=== PATIENT | male | born 1955 | race African-American/Black ===

== ENCOUNTER 2024-01-10 00:35 | Emergency (ER) | payer MEDICARE, BC, SELFPAY ==
[2024-01-10 00:35] VITALS: BMI 22.9
[2024-01-10 01:05] VITALS: BP 168/95; PULSE 78; RESP 18; TEMP 36.6; O2SAT 99
--- NOTE | 2024-01-10 01:24 | EDRME_ITS ---
Rapid Medical Screening Exam PENDING SALE TO [facility] Arrival date/time: 01/10/24 00:35 68M with history of GERD and hiatal hernia presents to ED with several hours of gen ab pain. Patient states this feels different than GERD and hernia pains. Chief Complaint: Abdominal Pain Vital signs: Vital Signs Temperature 98 F 01/10/24 01:05 Pulse Rate 78 01/10/24 01:05 Respiratory Rate 18 01/10/24 01:05 Blood Pressure 168/95 H 01/10/24 01:05 Pulse Oximetry (%) 99 01/10/24 01:05 Oxygen Delivery Method Room Air 01/10/24 01:05
[2024-01-10 02:07] LABS: Basophils % (Auto) 0 % (0-2.5); Eosinophils # (Auto) 0.1 Thou/mm3 (0.0-0.5); Eosinophils % (Auto) 1 % (0-10); Hematocrit 46.1 % (41.0-53.0); Hemoglobin 14.8 g/dL (13.5-16.0); Immature Granulocytes % (Auto) 0 % (0-0); Immature Granulocytes Auto 0.02 Thou/mm3 (0.00-0.00); Lymphocytes % (Auto) 15 % (10-50); Mean Corpuscular HGB Conc 32.1 g/dl (31.0-37.0); Mean Corpuscular Hemoglobin 27.4 pg (25.0-35.0); Mean Corpuscular Volume 85 fL (80-100); Monocytes # (Auto) 0.6 Thou/mm3 (0.0-0.8); Monocytes % (Auto) 9 % (0-12); Neutrophils # (Auto) 4.7 Thou/mm3 (1.8-7.7); Neutrophils % (Auto) 74 % (37-80); Nucleated Red Blood Cell % 0 /100 WBC (0); Platelet Count 150 Thou/mm3 (140-440); RDW Standard Deviation 47.2 fL (35.1-43.9); Red Blood Count 5.41 Miln/mm3 (4.50-5.90); White Blood Count 6.4 Thou/mm3 (3.8-10.6)
[2024-01-10 02:50] LABS: Alanine Aminotransferase 24 U/L (10-49); Albumin, Serum 4.3 gm/dL (3.4-4.8); Albumin/Globulin Ratio 1.5 (1.2-2.2); Alkaline Phosphatase 112 U/L (46-116); Anion Gap 8 (7-16); Aspartate Amino Transferase 34 U/L (0-34); BUN/Creatinine Ratio 13 Ratio (12-20); Bilirubin,Total 0.5 mg/dL (0.3-1.2); Blood Urea Nitrogen 15 mg/dL (9-23); Carbon Dioxide 26.2 mMol/L (20.0-31.0); Chloride 104 mMol/L (98-107); Creatinine (Component) 1.2 mg/dL (0.6-1.3); Estimated Creatinine Clearance 65.7 mL/min (>60); Globulin 2.9 gm/dL (2.3-3.5); Glucose 118 mg/dL (74-106); Lipase 44 U/L (12-53); Osmolality,Calculated 277 (275-295); Potassium 4.7 mMol/L (3.4-5.1); Sodium 138 mMol/L (136-145); Total Protein 7.2 gm/dL (5.7-8.2); eGFR > 60 See Note
== END 2024-01-10 01:24 | disposition left against medical advice (07) ==
PROVIDERS: Physician Assistant; Emergency Provider Emergency Medicine; PCP Internal Medicine
DX: R10.84 Generalized abdominal pain (principal); Z53.29 Procedure and treatment not carried out because of patient's decision for other reasons
CPT/HCPCS: 36415; 80053; 80307; 81001; 83690; 85025; 99281

== ENCOUNTER → 2024-01-14 | Outpatient (CLI) | payer MEDICARE, BC, SELFPAY ==
[2024-01-14 10:39] LABS: Basophils % (Auto) 0 % (0-2.5); Eosinophils # (Auto) 0.1 Thou/mm3 (0.0-0.5); Eosinophils % (Auto) 3 % (0-10); Hematocrit 47.2 % (41.0-53.0); Hemoglobin 15.1 g/dL (13.5-16.0); Immature Granulocytes % (Auto) 0 % (0-0); Lymphocytes % (Auto) 30 % (10-50); Mean Corpuscular Hemoglobin 27.5 pg (25.0-35.0); Mean Corpuscular Volume 86 fL (80-100); Monocytes # (Auto) 0.4 Thou/mm3 (0.0-0.8); Monocytes % (Auto) 12 % (0-12); Neutrophils # (Auto) 1.8 Thou/mm3 (1.8-7.7); Neutrophils % (Auto) 56 % (37-80); Nucleated Red Blood Cell % 0 /100 WBC (0); Platelet Count 183 Thou/mm3 (140-440); RDW Standard Deviation 46.9 fL (35.1-43.9); White Blood Count 3.3 Thou/mm3 (3.8-10.6)
[2024-01-14 10:55] LABS: Glucose Estimated Average 120 mg/dL (80-131); Hemoglobin A1C 5.8 % Hgb (4.8-6.0)
[2024-01-14 11:03] LABS: Prostate Specific Antigen 1.26 ng/mL (0-4.00)
[2024-01-14 11:11] LABS: Alanine Aminotransferase 26 U/L (10-49); Albumin, Serum 4.5 gm/dL (3.4-4.8); Alkaline Phosphatase 110 U/L (46-116); Anion Gap 8 (7-16); Aspartate Amino Transferase 17 U/L (0-34); BUN/Creatinine Ratio 14 Ratio (12-20); Bilirubin,Total 0.7 mg/dL (0.3-1.2); Blood Urea Nitrogen 15 mg/dL (9-23); Calcium 9.9 mg/dL (8.3-10.6); Calcium (Corrected) 9.9 mg/dL (8.5-10.1); Carbon Dioxide 27.6 mMol/L (20.0-31.0); Cardiac Risk Estimate 3.4 RATIO (4.0-6.7); Chloride 102 mMol/L (98-107); Cholesterol 157 mg/dL (132-200); Creatinine (Component) 1.1 mg/dL (0.6-1.3); Free T4 (Free Thyroxine) 1.23 ng/dL (0.89-1.76); Globulin 2.3 gm/dL (2.3-3.5); Glucose 81 mg/dL (74-106); HDL Cholesterol 46 mg/dL (40-60); LDL Cholesterol,Calculated 98 mg/dL (0-130); Osmolality,Calculated 275 (275-295); Potassium 4.1 mMol/L (3.4-5.1); Sodium 138 mMol/L (136-145); Thyroid Stimulating Hormone 0.64 uIU/mL (0.55-4.78); Total Protein 6.8 gm/dL (5.7-8.2); Triglycerides 66 mg/dL (30-150); eGFR > 60 See Note
[2024-01-14 11:37] LABS: Vitamin D 25 Hydroxy Total 54.4 ng/mL (7.3-40.2)
== END | disposition home or self-care (01) ==
LOC: COPL 09:19
PROVIDERS: PCP Internal Medicine; Referring Provider Internal Medicine; Visit Provider Internal Medicine
DX: M19.90 Unspecified osteoarthritis, unspecified site (principal); E11.9 Type 2 diabetes mellitus without complications; N40.1 Benign prostatic hyperplasia with lower urinary tract symptoms; E55.9 Vitamin D deficiency, unspecified; E78.2 Mixed hyperlipidemia; E03.9 Hypothyroidism, unspecified
CPT/HCPCS: 36415; 80053; 80061; 82306; 83036; 84153; 84439; 84443; 85025

== ENCOUNTER → 2024-01-18 | Outpatient (CLI) | payer MEDICARE, BC, SELFPAY ==
--- NOTE | 2024-01-18 09:49 | XR_ITS ---
Examination: Abdomen sonogram, complete Date and time of exam: January 18, 2024 0956 hours INDICATIONS: Epigastric pain beginning 3 weeks ago. Technique: Multiple real-time grayscale transabdominal sonographic images of the abdomen have been obtained. Findings: Gallbladder sludge No gallstones Gallbladder wall 0.3 cm no edema Common bile duct 0.3 cm Pancreatic head 2.8 cm Aorta not enlarged Liver 12.3 cm no focal liver lesions Normal hepatopedal portal venous flow Patent IVC Right kidney 9.5 x 5.4 x 5.1 cm cortex 2.1 cm Left kidney 9.4 x 4.7 x 5.3 cm cortex 1.4 cm Mild renal parenchymal scar formation Spleen 8.3 cm IMPRESSION: Gallbladder sludge Negative for cholelithiasis, negative for cholecystitis Liver normal size no focal liver lesions
== END | disposition home or self-care (01) ==
PROVIDERS: PCP Internal Medicine; Referring Provider Internal Medicine; Visit Provider Internal Medicine
DX: K82.8 Other specified diseases of gallbladder (principal)
CPT/HCPCS: 76700

== ENCOUNTER 2024-04-26 14:13 | Emergency (ER) | payer MEDICARE, BC, SELFPAY ==
[2024-04-26 14:41] VITALS: BP 147/85; PULSE 60; RESP 18; TEMP 36.6; O2SAT 98; BMI 20.7
--- NOTE | 2024-04-26 15:04 | PD.EDABDPN ---
ED Abdominal Pain RME/HPI General Chief Complaint: Abdominal Pain Stated complaint: Abdominal pain, nausea x 3 hrs Time seen by provider: 04/26/24 14:24 Arrival date/time: 04/26/24 14:13 RME / HPI RME / HPI narrative: 68-year-old male patient with significant history of GERD, came in for evaluation regarding epigastric pain. Onset of symptoms for the last 3 hours of severe epigastric pain, associated with nausea. Denies any fever denies any vomiting denies any diarrhea or constipation denies any other complaints no medication was taken prior travel. Related Data Home Medications ?Medication ?Instructions ?Recorded ?Confirmed atorvastatin 10 mg tablet 10 mg PO QDAY 08/11/17 09/21/21 ipratropium 20 mcg-albuterol 100 2 puff inhalation BID PRN 05/19/21 09/22/21 mcg/actuation mist for inhalation Shortness Of Breath Or Wheezing (Combivent Respimat) cetirizine 10 mg tablet (Zyrtec) 10 mg PO QDAY 09/21/21 09/21/21 Previous Rx's ?Medication ?Instructions ?Recorded pantoprazole 40 mg tablet,delayed 40 mg PO BID #180 tabs 09/22/21 release (Protonix) dicyclomine 20 mg tablet 20 mg PO QID PRN abdominal pain 04/26/24 #30 tabs metoclopramide HCl 10 mg tablet 10 mg PO Q6H PRN nausea and 04/26/24 (Reglan) vomiting #20 tabs Allergies Allergy/AdvReac Type Severity Reaction Status Date / Time No Known Allergies Allergy Verified 09/22/21 08:19 Review of Systems Review of Systems Narrative Review of Systems: Review of system reviewed and within normal limits except mentioned in HPI ED Exam Narrative Physical exam: VITAL SIGNS: Reviewed. GENERAL APPEARANCE: Alert and interactive, follows commands, no acute distress, HEAD AND FACE: Non-traumatic. ENT: PERRL, pink conjunctivitis, eyelid no trauma, Mucous membrane moist. NECK: Supple, nontender, no nuchal rigidity. CHEST: No tenderness, no crepitus, no paradoxical movement, no retractions. LUNGS: Clear, well ventilated, symmetric, no rales, no wheezing, no ronchi, no stridor, good breath sounds bilaterally. HEART: Regular rate, regular rhythm, no murmur, no gallops. ABDOMEN: Soft, positive bowel sounds, nondistended, no guarding, epigastric tenderness, no rebound, no masses, RECTAL: Deferred. GENITAL: Deferred. NEUROLOGICAL: Gross motor function intact sensory function intact, Appropriate for age. MUSCULOSKELETAL: low back nontender, full range of motion. EXTREMITIES: Nontender, full range of motion. SKIN: Color pink, dry, no rash, no lacerations, no abrasions, no contusions. LYMPHATICS: Deferred. Course Quality Measures none Orders Category Date Time Status CT Screening NOW Care 04/26/24 15:07 Active EKG (ED ONLY) *Do not use* NOW Care 04/26/24 15:[address] abdomen pelvis wo con Stat Exams 04/26/24 15:07 Completed EKG (ED Only) Stat Exams 04/26/24 15:05 Draft US gall bladder Stat Exams 04/26/24 15:05 Completed CBC Stat Lab 04/26/24 16:00 Completed Comprehensive Metabolic Panel Stat Lab 04/26/24 15:19 Completed Lipase Stat Lab 04/26/24 15:19 Completed Partial Thromboplastin Time Stat Lab 04/26/24 16:00 Completed Prothrombin Time with INR Stat Lab 04/26/24 16:00 Completed Troponin I Stat Lab 04/26/24 15:19 Completed Famotidine Inj [Pepcid Inj] Med 04/26/24 17:20 Discontinued 20 mg IVP X1 ONE Ketorolac Inj [Toradol Inj] Med 04/26/24 15:07 Discontinued 30 mg IVP X1 ONE Morphine Inj Med 04/26/24 17:20 Discontinued 4 mg IVP X1 ONE Ondansetron Inj [Zofran Inj] Med 04/26/24 15:07 Discontinued 4 mg IV X1 ONE Vital Signs Vital signs: Vital Signs Temperature 97.8 F 04/26/24 14:41 Pulse Rate 60 04/26/24 14:41 Respiratory Rate 18 04/26/24 14:41 Blood Pressure 147/85 H 04/26/24 14:41 Pulse Oximetry (%) 98 04/26/24 14:41 Oxygen Delivery Method Room Air 04/26/24 14:41 Abdominal Pain MDM MDM Narrative MDM Narrative:: 68-year-old male patient with significant history of GERD, came in for evaluation regarding epigastric pain. Onset of symptoms for the last 3 hours of severe epigastric pain, associated with nausea. Denies any fever denies any vomiting denies any diarrhea or constipation denies any other complaints no medication was taken prior travel. EKG showed sinus bradycardia, ventricular rate of 58 bpm, no ST segment elevation depression noted. Ultrasound gallbladder showed gallbladder sludge no sign of acute cholecystitis. CT scan of the abdomen and pelvis came back unremarkable. Except for nonobstructing renal calculi. Patient's workup today all came back normal including normal troponin and normal lipase. Results discussed with the patient. Patient was given famotidine, Toradol and morphine and Zofran with complete resolution of symptoms. Patient appears nontoxic and hemodynamically stable. Patient discharged home and instructed to follow-up with primary care provider in 24 to 48 hours. Instructed to return to the emergency department immediately if worsening of symptoms Patient data External records reviewed:: None Clinical information provided by:: patient Social determinants that could affect healthcare access:: none Patient has the following chronic illnesses:: None How is presenting disease/condition affected by chronic disease/condition?: no chronic disease Evaluation data The following diagnostics were reviewed and interpreted by me:: lab results, radiology exam(s) and EKG tracing(s) Lab and/or radiology exams considered but not ordered:: None Interpretation Summary: See results in [facility] Medications / Prescriptions Medications or Prescriptions considered but not ordered:: None Medication administrations:: Medication Administration History Discontinued Medications Famotidine (Famotidine Inj 10 Mg/Ml Vial 2 Ml) 20 mg IVP X1 ONE Stop: 04/26/24 17:21 Last Admin: 04/26/24 17:35 Dose: 20 mg Documented By: ISIAH Ketorolac Tromethamine (Ketorolac Inj 30 Mg/Ml Vial) 30 mg IVP X1 ONE Stop: 04/26/24 15:08 Last Admin: 04/26/24 16:06 Dose: 30 mg Documented By: ISIAH Morphine Sulfate (Morphine Sulf Inj 10 Mg/Ml Vial) 4 mg IVP X1 ONE Stop: 04/26/24 17:21 Last Admin: 04/26/24 17:35 Dose: 4 mg Documented By: ISIAH Ondansetron HCl (Ondansetron Inj 2 Mg/Ml Inj 2 Ml) 4 mg IV X1 ONE; Protocol Stop: 04/26/24 15:08 Last Admin: 04/26/24 16:06 Dose: 4 mg Documented By: ISIAH Pepcid Toradol morphine and Zofran Consultations Consultation(s) initiated? (list below): No Diagnosis Differential diagnosis abdominal pain: abdominal pain, constipation, pancreatitis and other (Gallbladder sludge,) Most likely diagnosis given after review of the tests above:: Abdominal pain, gallbladder sludge Admission Indicated Admission indicated?: not indicated Admission Request Was there a request for admission?: No Disposition Plan Disposition Plan: Discharge Discharge Attestation Discharge Attestation: The patient was given an opportunity to ask questions and understood the discharge instructions. Discharge instructions specifically effects, indications for sooner follow up or return to the emergency department, and the expected course of current diagnosis. Patient condition: Stable Discharge Plan Plan Patient Disposition: HOME (Self Care) Disposition Comment: Stable Prescriptions/Referrals Prescriptions/Med Rec: New dicyclomine 20 mg tablet 20 mg PO QID PRN (Reason: abdominal pain) Qty: 30 0RF metoclopramide HCl [Reglan] 10 mg tablet 10 mg PO Q6H PRN (Reason: nausea and vomiting) Qty: 20 0RF No Action atorvastatin 10 mg Tablet 10 mg PO QDAY Combivent Respimat 20-100 mcg/actuation mist 2 puff INHALATION BID PRN (Reason: Shortness Of Breath Or Wheezing) Patient Comments: TAKE 2 PUFFS BY MOUTH TWICE A DAY NEEDED cetirizine [Zyrtec] 10 mg Tablet 10 mg PO QDAY pantoprazole [Protonix] 40 mg Tablet,Delayed Release (Dr/Ec) 40 mg PO BID Qty: 180 0RF Rx Instructions: Take one tablet by mouth twice daily Referrals: Sathish Rivas MD [Primary Care Provider] - In 1 week Problem List Clinical Impression: Abdominal pain, Gallbladder sludge Patient/Caregiver Discharge Instructions Discharge Activity: activity as tolerated Education Materials: Abdominal Pain Additional Instructions: Thank you for the opportunity for serving you today. You are stable for discharged . You are advised to: Follow-up with your PCP in 1 to 2 days Return to ED for worsening of symptoms Increase oral fluids Take medication as prescribed Print Language: Ethiopian Stand Alone Forms: Serena Award Info., Patient Portal Info Letter PA/DESIREE Supervising Physician [place]/DESIREE Supervising Physician: MD Marley
--- NOTE | 2024-04-26 15:05 | XR_ITS ---
Examination: Abdomen sonogram, Limited Date and time of exam: April 26, 2024 1608 hrs. Indications: Onset epigastric pain today Technique: Real-time greene scale transabdominal sonographic images of the upper abdomen obtained. Findings: Gallbladder sludge No gallstones Gallbladder wall 0.3 cm Common bile duct 0.7 cm no stones Pancreatic head 2.8 cm Liver 15 cm fatty infiltration Normal hepatopedal portal venous flow Patent IVC Impression: Gallbladder sludge Negative for cholelithiasis, negative for cholecystitis Common bile duct 0.7 cm no stones noted
--- NOTE | 2024-04-26 15:05 | EKG_ITS ---
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
--- NOTE | 2024-04-26 15:07 | XR_ITS ---
Examination: CT abdomen and pelvis without contrast. Coronal 3-D reconstructions. Sagittal 2-D reconstructions. Date and time of exam:April 26, 2024 at 1813 hours INDICATIONS: Epigastric pain nausea beginning 3 hours ago, diagnosis carcinoma of the colon CTDI: vol (mGy): 5.17 DLP: (mGycm): 253 Technique: Axial images of the abdomen have been obtained, 3 mm slice thickness Intravenous contrast material has not been administered. Low dose protocols were performed. One or more of the following dose reduction techniques were used; automated exposure control, adjustment of the mA and/or KV according to patient size, use of iterative reconstruction technique. Findings: No focal liver or splenic lesion No gallstones No pancreatic mass or peripancreatic edema 1 mm posterior right renal calculus image 68 No hydronephrosis or ureteral calculi Aorta is not enlarged Normal appendix There is mild rotation of the mesentery, for instance axial image 108 but no bowel obstruction Bladder intact No significant prostatomegaly Moderate disc narrowing L4-L5, L5-S1 IMPRESSION: 1 mm posterior right renal calculus, no hydronephrosis or ureteral calculi Normal appendix There is mild rotation of the mesentery, for instance axial image 108, but no bowel obstruction
[2024-04-26 15:47] LABS: Alanine Aminotransferase 21 U/L (10-49); Albumin, Serum 4.4 gm/dL (3.4-4.8); Albumin/Globulin Ratio 1.5 (1.2-2.2); Alkaline Phosphatase 114 U/L (46-116); Anion Gap 13 (7-16); Aspartate Amino Transferase 23 U/L (0-34); BUN/Creatinine Ratio 16 Ratio (12-20); Bilirubin,Total 0.7 mg/dL (0.3-1.2); Blood Urea Nitrogen 19 mg/dL (9-23); Carbon Dioxide 24.6 mMol/L (20.0-31.0); Chloride 102 mMol/L (98-107); Creatinine (Component) 1.2 mg/dL (0.6-1.3); Estimated Creatinine Clearance 59.4 mL/min (>60); Globulin 2.9 gm/dL (2.3-3.5); Glucose 180 mg/dL (74-106); Lipase 27 U/L (12-53); Osmolality,Calculated 286 (275-295); Potassium 3.6 mMol/L (3.4-5.1); Sodium 140 mMol/L (136-145); Total Protein 7.3 gm/dL (5.7-8.2); Troponin I < 0.020 ng/mL (0.0-0.045); eGFR > 60 See Note
[2024-04-26] MEDS: KETOROLAC INJ 30 MG/ML VIAL IVP (16:06)
[2024-04-26] MEDS: ONDANSETRON INJ 2 MG/ML INJ 2 ML 4 MG IV (16:06)
[2024-04-26 16:21] VITALS: BP 132/72; PULSE 55; RESP 15; TEMP 36.9; O2SAT 100
[2024-04-26 16:24] LABS: Eosinophils % (Auto) 0 % (0-10); Nucleated Red Blood Cell % 0 /100 WBC (0)
[2024-04-26 16:37] LABS: Partial Thromboplastin Time 24.5 Seconds (22.0-36.0); Prothrombin Time 11.4 Seconds (9.0-12.2)
[2024-04-26 16:38] LABS: Basophils % (Auto) 0 % (0-2.5); Hematocrit 43.4 % (41.0-53.0); Hemoglobin 14.4 g/dL (13.5-16.0); Immature Granulocytes % (Auto) 0 % (0-0); Immature Granulocytes Auto 0.01 Thou/mm3 (0.00-0.00); Lymphocytes # (Auto) 0.7 Thou/mm3 (1.0-4.8); Lymphocytes % (Auto) 10 % (10-50); Mean Corpuscular HGB Conc 33.2 g/dl (31.0-37.0); Mean Corpuscular Hemoglobin 27.7 pg (25.0-35.0); Mean Corpuscular Volume 84 fL (80-100); Monocytes # (Auto) 0.3 Thou/mm3 (0.0-0.8); Monocytes % (Auto) 5 % (0-12); Neutrophils # (Auto) 5.7 Thou/mm3 (1.8-7.7); Neutrophils % (Auto) 85 % (37-80); Platelet Count 205 Thou/mm3 (140-440); RDW Standard Deviation 48.9 fL (35.1-43.9); White Blood Count 6.6 Thou/mm3 (3.8-10.6)
--- NOTE | 2024-04-26 17:20 | PC.NURSE ---
Gianna CHARLES MAINTENANCE SHOP CLERK MADE AWARE PT'S PAIN IS 9/10 AT THIS TIME AND REQUESTING MORE PAIN MEDS. VERBAL ORDERS RECEIVED.
[2024-04-26] MEDS: MORPHINE SULF INJ 10 MG/ML VIAL 4 MG IVP (17:35)
[2024-04-26] MEDS: FAMOTIDINE INJ 10 MG/ML VIAL 2 ML 20 MG IVP (17:35)
[2024-04-26 18:38] VITALS: BP 120/72; PULSE 65; RESP 18; TEMP 36.7; O2SAT 100
[2024-04-26 20:25] VITALS: BP 117/58; PULSE 71; RESP 18; TEMP 36.8; O2SAT 99
== END 2024-04-26 20:25 | disposition home or self-care (01) ==
PROVIDERS: Nurse Practitioner Family; Emergency Provider Emergency Medicine; PCP Internal Medicine
DX: R10.13 Epigastric pain (principal); K82.8 Other specified diseases of gallbladder
CPT/HCPCS: 36415; 74176; 74177; 76705; 80053; 83690; 84484; 85025; 85610; 85730; 93005; 96374; 96375; 99284; A4649; J1885; J2270; J2405; J3490; Q9967

== ENCOUNTER 2025-01-16 08:50 | Day surgery (SDC) | payer MEDICARE, BC, SELFPAY ==
[2025-01-16] VITALS (9 sets, daily range): BP systolic 107–138; BP diastolic 60–90; PULSE 60–83; RESP 12–20; TEMP 36.2–36.6; O2SAT 97–100; BMI 24.8
[2025-01-16] MEDS: BENZOCAINE 20% (Hurricaine) SPRAY 1 DOSE TOP (11:37)
[2025-01-16] MEDS: SODIUM CHLORIDE 0.9% 500 ML 500 ML 20 ML IV (11:37)
[2025-01-16] MEDS: MIDAZOLAM INJ 1 MG/ML VIAL 2 ML (ASD USE ONLY) 2 MG IVP (11:40)
[2025-01-16] MEDS: fentaNYL CIT INJ 50 mCg/ML AMP 2ML (ASD USE ONLY) IVP (11:40)
== END 2025-01-16 13:05 | disposition home or self-care (01) ==
PROVIDERS: PCP Internal Medicine; Referring Provider Specialist; Visit Provider Specialist
PROC: (CPT 43239; principal; 2025-01-16 09:30)
DX: K22.70 Barrett's esophagus without dysplasia (principal); K29.70 Gastritis, unspecified, without bleeding
CPT/HCPCS: 43239; A4649; J1200; J2250; J3010; J7999; A9270